=== PATIENT | female | born 1970 | race Caucasian/White ===

== ENCOUNTER 2024-04-06 17:08 | Emergency (ER) | payer OTHER ==
[~2024-04-06] VITALS: Ht 172.7 cm; Wt 63.6 kg
[~2024-04-06 17:08] MED LIST: AMOXICILLIN 8751 TAB PO
[2024-04-06 17:26] VITALS: TEMP 97.7
[2024-04-06] MEDS ORDERED: Acetaminophen 325 MG TAB PO ONE (18:45)
[2024-04-06 19:46] VITALS: BP 140/78; PULSE 62
== END 2024-04-06 19:50 | disposition home or self-care (01) ==
LOC: COL.ER 17:08
DX: S60.212A Contusion of left wrist, initial encounter (principal); S06.0XAA Concussion with loss of consciousness status unknown, initial encounter; W19.XXXA Unspecified fall, initial encounter; W22.8XXA Striking against or struck by other objects, initial encounter; Y92.89 Other specified places as the place of occurrence of the external cause; Y99.0 Civilian activity done for income or pay